=== PATIENT | female | born 2000 | race Caucasian/White ===

== ENCOUNTER 2022-08-23 13:48 | Outpatient (CLI) | payer BC, SELFPAY ==
[2022-08-23 18:04] LABS: Hepatitis B Surface Antigen* Negative (Negative)
[2022-08-23 18:15] LABS: HIV 1/2/P24 Combo Screen* Negative (Negative)
[2022-08-23 18:21] LABS: Hepatitis C Virus Antibody* Negative (Negative)
[2022-08-23 18:55] LABS: Chlamydia DNA Amplified* NOT DETECTED (No Detected); GC DNA Amplified* NOT DETECTED (No Detected)
[2022-08-26 09:03] LABS: Rapid Plasma Reagin (RPR) Non Reactive (Non Reactive)
== END 2022-08-23 13:49 | disposition home or self-care (01) ==
PROVIDERS: PCP Family Medicine; Visit Provider Physician Assistant
DX: Z01.419 Encounter for gynecological examination (general) (routine) without abnormal findings (principal); Z11.3 Encounter for screening for infections with a predominantly sexual mode of transmission
CPT/HCPCS: 86592; 86703; 86803; 87340; 87491; 87591